=== PATIENT | female | born 1975 | race American Indian/Alaskan Native ===

== ENCOUNTER 2016-08-14 01:42 | Emergency (ER) | payer SELFPAY ==
[2016-08-14 02:23] VITALS: BP 130/96
--- NOTE | 2016-08-14 03:13 | Emergency Department Report ---
ED ENT HPI - General Chief complaint: Earache Stated complaint: LT EARACHE Time Seen by Provider: 08/14/16 03:08 Source: patient Mode of arrival: Ambulatory Limitations: No Limitations - History of Present Illness Initial comments: 41-year-old -[place] female with no past medical history currently takes no medication and has no known drug allergies comes in today for complaint of pain and decreased ability to hear out of her left ear. Patient reports that she's been having drainage and blood coming from her left ear. Patient reports that this been going on since the beginning of July. She does admit that she has washed her hair at the beginning of July but did not blow dryer. complaint: ear pain - Related Data Previous Rx's Medication Instructions Recorded Last Taken Type Amoxicillin [Amoxicillin TAB] 875 mg PO BID #14 tablet 08/14/16 Unknown Rx Ibuprofen [Motrin] 800 mg PO Q8HR PRN #30 tablet 08/14/16 Unknown Rx Neomy/Polymyx B/Hc Otic Susp 4 drops AU BID #1 bottle 08/14/16 Unknown Rx [Cortisporin (Otic) Susp] Allergies Allergy/AdvReac Type Severity Reaction Status Date / Time No Known Allergies Allergy Unverified 08/14/16 02:20 ED Dental HPI - General Chief complaint: Earache Stated complaint: LT EARACHE Time Seen by Provider: 08/14/16 03:08 Source: patient Mode of arrival: Ambulatory Limitations: No Limitations - Related Data Previous Rx's Medication Instructions Recorded Last Taken Type Amoxicillin [Amoxicillin TAB] 875 mg PO BID #14 tablet 08/14/16 Unknown Rx Ibuprofen [Motrin] 800 mg PO Q8HR PRN #30 tablet 08/14/16 Unknown Rx Neomy/Polymyx B/Hc Otic Susp 4 drops AU BID #1 bottle 08/14/16 Unknown Rx [Cortisporin (Otic) Susp] Allergies Allergy/AdvReac Type Severity Reaction Status Date / Time No Known Allergies Allergy Unverified 08/14/16 02:20 ED Review of Systems ROS: Stated complaint: LT EARACHE Other details as noted in HPI Constitutional: denies: chills, fever Eyes: eye discharge ENT: ear pain Respiratory: denies: cough, shortness of breath, wheezing Cardiovascular: denies: chest pain, palpitations Endocrine: no symptoms reported Gastrointestinal: denies: abdominal pain, nausea, diarrhea Genitourinary: denies: urgency, dysuria, discharge Musculoskeletal: denies: back pain, joint swelling, arthralgia Skin: denies: rash, lesions Neurological: denies: headache, weakness, paresthesias Psychiatric: denies: anxiety, depression Hematological/Lymphatic: denies: easy bleeding, easy bruising ED Past Medical Hx - Past Medical History Previous Medical History?: Yes Additional medical history: Arrythmia - Surgical History Past Surgical History?: No - Social History Smoking Status: Never Smoker Substance Use Type: None - Medications Home Medications: Home Medications Medication Instructions Recorded Confirmed Last Taken Type Amoxicillin [Amoxicillin TAB] 875 mg PO BID #14 tablet 08/14/16 Unknown Rx Ibuprofen [Motrin] 800 mg PO Q8HR PRN #30 tablet 08/14/16 Unknown Rx Neomy/Polymyx B/Hc Otic Susp 4 drops AU BID #1 bottle 08/14/16 Unknown Rx [Cortisporin (Otic) Susp] ED Physical Exam - General Limitations: No Limitations - Head Head exam: Present: atraumatic, normocephalic - Eye Eye exam: Present: normal appearance, PERRL, EOMI - ENT ENT exam: Present: mucous membranes moist - Expanded ENT Exam Expanded TM/Canal exam: Erythema: Left TM, Bulging: Left TM, Canal Discharge: Left TM, Canal Tenderness: Left TM Throat exam: Positive: normal inspection - Neck Neck exam: Present: normal inspection, full ROM. Absent: lymphadenopathy - Respiratory Respiratory exam: Present: normal lung sounds bilaterally - Cardiovascular Cardiovascular Exam: Present: normal rhythm ED Course Vital Signs 08/14/16 08/14/16 01:53 02:20 Temperature 99 F 99.0 F Pulse Rate 75 60 Respiratory 18 18 Rate Blood Pressure 130/81 Blood Pressure 130/96 [Right] O2 Sat by Pulse 96 100 Oximetry ED Medical Decision Making - Medical Decision Making She has been evaluated by this provider fast track. Discussed the patient I'll place an ear wick will antibiotic drops to the ear. Discussed with patient placed on oral antibiotics as well since this infection has been going on for a while. Discussed the patient I will give her Motrin for pain and for her to follow up with the ear nose and throat provider. Critical care attestation.: If time is entered above; I have spent that time in minutes in the direct care of this critically ill patient, excluding procedure time. ED Disposition Clinical Impression: Otitis externa Qualifiers: Otitis externa type: swimmer's ear Laterality: left Chronicity: acute Qualified Code(s): H60.332 - Swimmer's ear, left ear Disposition: DISCHARGED TO HOME OR SELFCARE Is pt being admited?: No Does the pt Need Aspirin: No Condition: Stable Instructions: Otitis Externa (ED) Additional Instructions: Take the antibiotics orally as prescribed. Please take the antibiotics drops to left ear. I recommend keeping the ear wick in for 24 hours. She can apply antibiotics. Return to the emergency room if symptoms persist but does not improve. Prescriptions: Amoxicillin [Amoxicillin TAB] 875 mg PO BID #14 tablet Ibuprofen [Motrin] 800 mg PO Q8HR PRN #30 tablet PRN Reason: Pain Neomy/Polymyx B/Hc Otic Susp [Cortisporin (Otic) Susp] 4 drops AU BID #1 bottle Referrals: PRIMARY CAREMD [Primary Care Provider] - 3-5 Days EVELINE ENCISO MD [Staff Physician] - 3-5 Days Forms: Work/School Release Form(ED)
[2016-08-14] MEDS ORDERED: CORTISPORIN AU SCH (04:00)
== END 2016-08-14 04:22 | disposition home or self-care (01) ==
LOC: ED 01:42
DX: H60.332 Swimmer's ear, left ear (principal); I49.9 Cardiac arrhythmia, unspecified
CPT/HCPCS: 99282